=== PATIENT | female | born 1960 | race Caucasian/White ===

== ENCOUNTER → 2020-06-06 | Outpatient (REF) | LOC: WSOH 13:27 | DX: Z02.89 Encounter for other administrative examinations (principal) ==

== ENCOUNTER → 2023-09-30 | Outpatient (CLI) | payer MEDICAID ==
[~2023-09-30] MED LIST: ARTIFICIAL TEAR15 M7 OP; CEPHALEXIN500 M1 PO; COLACE LIQUI10 MG/ML PO; DESYREL 50MG50 MG PO; HEPARIN SOD5000 U/ML SQ; Iohexol 300 - 100 ML VIAL IV ONE; LOPRESSOR 225 MG/TAB PO; MELATONIN5 M1 SL; NEURONTIN100 MG/CAP PO; NS 100 ML IV SCH; PROTONIX 40MG T40 MG PO; PROVIGIL200 MG PO; ROXICODONE 55 MG/TAB PO; SENNA8.8 MG/5 M PO; SENOKOT S 50 MG1 TAB PO; SODIUM CHLORI1000 M4 PEG; TIROSINT88 MC1 PO; TYLENOL 8 HR PO
== END ==
LOC: COL.RAD 13:30
DX: G93.89 Other specified disorders of brain (principal); I60.11 Nontraumatic subarachnoid hemorrhage from right middle cerebral artery
CPT/HCPCS: Q9967

== ENCOUNTER 2024-01-27 17:24 | Inpatient (IN) | payer MEDICAID ==
[2024-01-27] VITALS (97 sets, daily range): BP systolic 143; BP diastolic 98; PULSE 95; TEMP 98.1; O2SAT 97–100
[~2024-01-27] VITALS: Ht 160 cm; Wt 63.5 kg
[~2024-01-27 17:24] MED LIST changes: -Iohexol 300 - 100 ML VIAL IV ONE; -NS 100 ML IV SCH
[2024-01-27 17:57] LABS: HEMATOCRIT 38.5 % (37.0-47.0); HEMOGLOBIN 13.4 g/dl (12.5-16.0); MEAN CELL VOLUME 94 fl (80.0-100.0); MEAN CORPUSCULAR HEMOGLOBIN 33 pg (27-31); MEAN CORPUSCULAR HGB CONC 35 g/dl (33.0-37.0); MEAN PLATELET VOLUME 7.9 fl (7.4-10.4); PLATELET COUNT 308 K/mm3 (130-400); RED BLOOD COUNT 4.11 M/mm3 (4.10-5.30)
[2024-01-27] MEDS ORDERED: levETIRAcetam 1,500 MG in Syringe 1 EACH IV ONE (18:00)
[2024-01-27 18:11] LABS: ALANINE AMINOTRANSFERASE 28 U/L (0-55); ALBUMIN 4.2 g/dL (3.4-4.8); ALKALINE PHOSPHATASE 74 U/L (40-150); ANION GAP 18 mmol/L (7-16); AST,SGOT 23 U/L (5-34); BILIRUBIN,TOTAL 0.4 mg/dL (0.2-1.2); BLOOD UREA NITROGEN 11 mg/dL (10-20); CALCIUM 9.4 mg/dL (8.4-10.2); CHLORIDE 99 mEq/L (98-107); CREATININE, serum 0.87 mg/dL (0.57-1.11); GLUCOSE 104 mg/dL (70-99); LIPASE 44 U/L (8-78); MAGNESIUM 1.7 mg/dL (1.6-2.6); POTASSIUM 3.7 mEq/L (3.5-4.5); SODIUM 136 mEq/L (136-145); TOTAL PROTEIN 7.6 g/dl (6.2-8.1)
[2024-01-27 18:13] LABS: ALCOHOL(ethanol),MEDICAL < 10 mg/dL (0-10)
[2024-01-27 18:26] LABS: TROPONIN-I < 0.010 ng/mL (0.00-0.033)
[2024-01-27 18:28] LABS: BAND 4 % (0-10); BASOPHIL 1 % (0-2); EOSINOPHIL 1 % (0-4); LYMPHOCYTE 45 % (20.0-51.0); METAMYELOCYTE 2 % (0-0); NEUTROPHILS 45 % (42.0-75.2); PLATELET ESTIMATE NORMAL (NORMAL)
[2024-01-27 18:56] LABS: COLLECTION METHOD CATHETER
[2024-01-27] MEDS ORDERED: NS 1,000 ML IV ONE (19:00)
[2024-01-27 19:01] LABS: PH 6.5 (5.0-8.5); URINE APPEARANCE CLEAR (CLEAR/HAZY); URINE BLOOD 1+ (NEGATIVE); URINE COLOR YELLOW (YELLOW); URINE GLUCOSE NEGATIVE (NEGATIVE); URINE KETONE TRACE (NEGATIVE); URINE NITRATE NEGATIVE (NEGATIVE); URINE PROTEIN(semi-quant) 1+ (NEGATIVE)
[2024-01-27 19:11] LABS: TRICYCLIC ANTIDEPRESS URINE NEGATIVE (NEGATIVE)
[2024-01-27] MEDS ORDERED: Acetaminophen 325 MG TAB PO PRN (19:45)
[2024-01-27] MEDS ORDERED: LR 1,000 ML IV SCH (19:45)
[2024-01-27] MEDS ORDERED: PRINIVIL5 MG PO (19:55)
[2024-01-27] MEDS ORDERED: LIPITOR 40MG TA40 MG PO (19:55)
[2024-01-27] MEDS ORDERED: TRICOR 48MG48 MG PO (19:56)
[2024-01-27] MEDS ORDERED: HAIRSKINNAILS PO (19:57)
[2024-01-27] MEDS ORDERED: cefTRIAXone 1 G in Water For Injection,Sterile 10 ML IV SCH (20:00)
[2024-01-27] MEDS ORDERED: Atorvastatin 40 MG TAB PO SCH (21:00)
[2024-01-27] MEDS ORDERED: LORazepam 2 MG/ML 1 ML VIAL IV PRN (21:00)
--- NOTE | 2024-01-27 23:17 | NUR ---
Received report from ED nurse Radha at 4809. Pt arrived on unit at 2214. Pt is alert and drowsy, but able to answer questions. Pt is oriented x4. Pt has LR running at this time. Vitals are stable upon arrival. Purewick is in place and seizure pads are in place with all rails up. Will continue with pt care.
[2024-01-28] VITALS (629 sets, daily range): BP systolic 110–133; BP diastolic 69–86; PULSE 67–83; TEMP 98–98.4; O2SAT 88–100
--- NOTE | 2024-01-28 06:13 | NUR ---
Pt had an uneventful night. Vitals have been stable throughout the night. IVF's are running at this time. Pt slept most of the night and is oriented x4. Pt is also drowsy and seems confused at times. Pt is currently resting in bed with the bed in low position, bed alarm on, and call light within reach. Purewick is in place. Will give report to day shift nurse.
[2024-01-28 06:25] LABS: BASO # 0.1 K/mm3 (0.0-0.2); BASO % 1.1 % (0.0-2.0); EOS # 0.2 K/mm3 (0.0-0.7); EOS % 2.7 % (0.0-4.0); GRAN # 4.2 K/mm3 (1.4-6.5); GRAN % 56.3 % (42.2-75.2); HEMOGLOBIN 12.5 g/dl (12.5-16.0); LYMPH # 2.3 K/mm3 (1.2-3.4); LYMPH % 30.7 % (20.0-51.0); MEAN CELL VOLUME 93 fl (80.0-100.0); MEAN CORPUSCULAR HEMOGLOBIN 32 pg (27-31); MEAN CORPUSCULAR HGB CONC 35 g/dl (33.0-37.0); MONO # 0.7 K/mm3 (0.1-0.6); MONO % 8.8 % (1.7-9.3); PLATELET COUNT 270 K/mm3 (130-400); RED BLOOD COUNT 3.87 M/mm3 (4.10-5.30); REDCELL DISTRIBUTION WIDTH-CV 13.2 % (11.5-14.5)
[2024-01-28 06:27] LABS: HEMATOCRIT 35.9 % (37.0-47.0)
[2024-01-28 06:50] LABS: CALCIUM 8.7 mg/dL (8.4-10.2); CREATININE, serum 0.7 mg/dL (0.57-1.11)
--- NOTE | 2024-01-28 07:40 | NUR ---
THIS NURSE RECIEVED BEDSIDE REPORT FROM [place]. PATIENT IS AWAKE, IN BED, WATCHING TV. PATIENT IS ALERT AND ORIENTED. VITAL SIGNS ARE WNL. PATIENT HAS A 20G IV TO THE LEFT HAND/WRIST AREA. LR IS RUNNING AT 125 ML/HR AT THIS TIME. PATIENT IS STILL ON SEIZURE PRECAUTIONS, AND SEIZURE PADS ARE IN PLACE. PERWICK IS IN PLACE AT THIS TIME. BED IN LOW POSITION, BED ALARM ON, AND CALL LIGHT WITHIN PATIENT'S REACH.
[2024-01-28] MEDS ORDERED: Pantoprazole 40 MG in NS 10 ML IV SCH (09:00)
[2024-01-28] MEDS ORDERED: levETIRAcetam 1,000 MG in Syringe 1 EACH IV SCH (09:00)
[2024-01-28] MEDS ORDERED: Lisinopril 5 MG TAB PO SCH (09:00)
--- NOTE | 2024-01-28 10:12 | NUR ---
THE PHARMACEUTICAL LABORATORY TECHNICIAN WAS BY TO VISIT THIS PATIENT. PHARMACEUTICAL LABORATORY TECHNICIAN CAME OUT AND SAID THAT PATIENT WAS FALLING ASLEEP MID CONVERSATION. PATIENT HAS BEEN TRYING TO SLEEP ALL MORNING, BUT KEEPS GETTING INTERRUPTED DUE TO ASSESSMENT NEEDS, MEDICATION ADMINISTRATION, AND PT. PATIENT'S VITAL SIGNS ARE WNL.
[2024-01-28] MEDS ORDERED: KEPPRA1000 MG PO (10:59)
--- NOTE | 2024-01-28 12:34 | NUR ---
SW met with patient to complete intial assessment for discharge planning. Patient verified that she lives outside [place] by herself, is normally independent, has walkers but only uses them in emergencies and has grab bars. Patient lists her daughter Porfirio ([phone]) as her contact and her friend Brittney Hughes ([phone]) as contact. 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 Patient denies having a DPOA assigned to anyone but states her daughter Porfirio would be her decision maker. Patient had listed her step daughter Chana as DPOA in the past but states that is no longer effective due to conflict with Chana after last hospitalization. Patient states she does not have a PCP any longer, uses [facility] or [facility] pharmacy. Patient denies having any home services at this time and denies the need for such. Patient states Porfirio and her Hawk will stay with her for a few days after returning home to help her. Patient denies any needs at this time and states her daughter will pick her up for discharge. Discharge plan: Home
--- NOTE | 2024-01-28 13:01 | NUR ---
Data: Patient accepted spiritual care visit offered during [employer] rounds. Patient fell asleep several times while speaking with [employer]. Patient stated she had a headache and requested Tylenol. Life review. Assessment: Patient wants to return to work; is not ready to retire. She is frustated that her health is creating a barrier to returning to work. Plan of Care: [employer] [facility]ider informed RN of Patient's falling asleep while she is talking and of her headache. [employer] Rider provided supportive listening and prayed for Patient. Chaplains will remain available as needed/requested while Patient is admitted to this hospital.
--- NOTE | 2024-01-28 17:07 | NUR ---
PATIENT AND SON-IN-LAW LISTENED IN ON DISCHARGE EDUCATION. BOTH PARTIES WERE WILLING AND ACCEPTING OF THE EDUCATION. THIS NURSE STRESSED THE IMPORTANCE OF NOT DRIVING, NOR BATHING/SWIMMING IN BODIES OF WATER DUE TO RISK. BOTH PARTIES WERE UNDERSTANDING. PATIENT CHANGED INTO HOME CLOTHES. IV SITE ON L HAND, DISCONTINUED, CATHETER TIP INTACT, AND NO INFILTRATION OR PHELBITIS PRESENT. PATIENT WAS ESCORTED OUT TO PERSONAL VEHICLE BY THIS NURSE IN A WHEELCHAIR. PATIENT IS BEING TAKEN HOME BY DAUGHTER AND SON IN LAW. PATIENT HAD PURSE, READING GLASSES, AND PHONE WITH HER. NO OTHER PERSONAL ITEMS NOTED IN ROOM. PATIENT LEFT THE UNIT AT 1700.
== END 2024-01-28 17:07 | disposition home or self-care (01) | DRG 101 ==
LOC: COL.ER 17:24 → ICU 22:00
PROVIDERS: Emergency Medicine; Nurse Practitioner Family; ADMIT Internal Medicine
DX: G40.909 Epilepsy, unspecified, not intractable, without status epilepticus (principal); N39.0 Urinary tract infection, site not specified; E87.20 Acidosis, unspecified; F17.210 Nicotine dependence, cigarettes, uncomplicated; Z20.822 Contact with and (suspected) exposure to COVID-19; E78.5 Hyperlipidemia, unspecified; E05.00 Thyrotoxicosis with diffuse goiter without thyrotoxic crisis or storm; I10 Essential (primary) hypertension; E03.9 Hypothyroidism, unspecified; Z86.73 Personal history of transient ischemic attack (TIA), and cerebral infarction without residual deficits; Z88.5 Allergy status to narcotic agent; Z79.899 Other long term (current) drug therapy; Z79.890 Hormone replacement therapy; Z23 Encounter for immunization
CPT/HCPCS: J0696; J1953; J2470; J7030; J7120; Q3014